=== PATIENT | female | born 1960 | race Caucasian/White ===

== ENCOUNTER 2024-02-06 06:11 | Day surgery (SDC) | payer OTHER ==
[~2024-02-06] VITALS: Ht 158 cm; Wt 57.6 kg
[2024-02-06] VITALS (16 sets, daily range): BP systolic 102–128; BP diastolic 61–77
[~2024-02-06 06:11] MED LIST: ALPR.25 PO; Adipex-P37.5 M1 PO; CIPRO500 MG PO; FISH1000 PO; Flagyl500 MG PO; HYDACE5 PO; OXYB5 PO; Percocet 10-321 EACH PO; Percocet 5-3251 EACH PO; Prozac20 MG PO; SERT100 PO; SERT50 PO; SUMA25 PO; TOPI25C PO; VITAMIN D310 MC4 PO
[2024-02-06] MEDS ORDERED: Ropivacaine 0.5% HCl/Pf 123.125 MG,EPINEPHrine HCL 0.25 MG,Ketorolac Tromethamine 15 MG... INFIL SCH (06:20)
[2024-02-06] MEDS ORDERED: Vancomycin HCL 1,000 MG in NS 250 ML IV SCH (06:20)
[2024-02-06] MEDS ORDERED: Acetaminophen 500 MG Tab PO SCH ×2 (06:20→08:00)
[2024-02-06] MEDS ORDERED: OxyCODONE HCL 10 MG TABCR PO SCH (06:20)
[2024-02-06] MEDS ORDERED: CeFAZolin Sodium 2,000 MG in NS 100 ML IV SCH ×2 (06:20→16:00)
[2024-02-06] MEDS ORDERED: Tranexamic Acid 100 ML IV SCH (06:20)
[2024-02-06] MEDS ORDERED: Chlorhexidine Mouth Care 15 ML UDC MT SCH (06:20)
[2024-02-06] MEDS ORDERED: Lactated Ringer's 1,000 ML IV SCH ×2 (06:20→07:40)
[2024-02-06] MEDS ORDERED: NYSTATIN100000 U13 PO (06:48)
[2024-02-06] MEDS ORDERED: propofoL 50 ML IV ONE (07:13)
[2024-02-06] MEDS ORDERED: Bupivacaine 0.75%/Dext 8.25% 2 ML Amp IT ONE (07:13)
[2024-02-06] MEDS ORDERED: Midazolam HCl 1MG / ML 2ML Vial ONE (07:16)
[2024-02-06] MEDS ORDERED: FentaNYL Citrate 50 MCG/ML 2 ML Injection ONE (07:16)
[2024-02-06] MEDS ORDERED: Dexamethasone Sod Phos 10 MG/ML 1ML VIAL ONE (07:19)
[2024-02-06] MEDS ORDERED: Ondansetron HCl 2 MG / ML 2ML Vial ONE (07:19)
[2024-02-06] MEDS ORDERED: Lidocaine HCl 2% 20 ML MDV ONE (07:19)
[2024-02-06] MEDS ORDERED: Vancomycin HCl 1000 MG ADDvantage ONE (07:26)
[2024-02-06] MEDS ORDERED: FLU VACC TS2024-25(6MOS UP)/PF 45 MCG/0.5 ML SYRINGE IM PRN (07:40)
[2024-02-06] MEDS ORDERED: HYDROmorphone HCl 2 MG Tab PO PRN (07:40)
[2024-02-06] MEDS ORDERED: Phenylephrine HCl 100 MCG/ML-NS 10MLSYR (1MG/10ML) ONE (07:41)
[2024-02-06] MEDS ORDERED: Metoclopramide HCl 5MG / ML 2ML Vial IV PRN (07:45)
[2024-02-06] MEDS ORDERED: Bisacodyl 10 MG Supp PR PRN (07:45)
[2024-02-06] MEDS ORDERED: Magnesium Hydroxide Conc 10 ML UDC PO PRN (07:45)
[2024-02-06] MEDS ORDERED: DiphenhydrAMINE HCL 25 MG Cap PO PRN (07:45)
[2024-02-06] MEDS ORDERED: OxyCODONE HCL 5 MG TAB PO PRN (07:50)
[2024-02-06] MEDS ORDERED: Naloxone HCl 0.4MG / ML 1ML Vial IV PRN (07:50)
[2024-02-06] MEDS ORDERED: SUMAtriptan succinate 50 MG Tab PO PRN (07:50)
[2024-02-06] MEDS ORDERED: Promethazine HCl 25 MG Tab PO PRN (07:50)
[2024-02-06] MEDS ORDERED: Ondansetron HCl 2 MG / ML 2ML Vial IV PRN (07:50)
[2024-02-06] MEDS ORDERED: Docusate Sodium 100 MG Cap PO SCH (09:00)
[2024-02-06] MEDS ORDERED: HYDROmorphone HCl/Pf 1MG SYR IV PRN (10:30)
--- NOTE | 2024-02-06 10:42 | NUR ---
PT ARRIVED TO THE ROOM VIA HOSPITAL BED. A&O X4 PLEASENT MOOD. ABLE TO WIGGLE TOES BUT STATES THAT SENSATION IS MIN. L KNEE INCISION COVERED WITH JULISA, C/D/I. PPP. VSS. SNACKS AND DRINKS AT BEDSIDE. BED IN LOWEST POSITION, CALL LIGHT WITHIN REACH.
[2024-02-06] MEDS ORDERED: ALPRAZolam 0.5 MG Tab PO PRN (11:20)
[2024-02-06] MEDS ORDERED: Nystatin 100,000 Unit/ML Susp 5 ML UDC PO PRN (11:25)
[2024-02-06] MEDS ORDERED: Ketorolac Tromethamine 15mg Vial IV SCH (12:00)
--- NOTE | 2024-02-06 17:25 | NUR ---
SHIFT SUMMARY POD 0 [facility]. INCISION DRESSINGS C/D/I. PPP. AMBULATED HALLWAYS AND WORKED WITH PT THIS AFTERNOON. PAIN MINIMAL AND MANAGED PER EMAR. EATING/DRINKING/VOIDING WITHOUT ISSUE. DENIES N/T. A&O X4. VSS.
[2024-02-06] MEDS ORDERED: Vancomycin HCL 1,000 MG in NS 250 ML IV ONE (19:00)
[2024-02-07 04:56] VITALS: BP 115/64
[2024-02-07 05:11] LABS: BASOPHILS ABSOLUTE AUTO 0.03 K/mm3 (0.00-0.23); BASOPHILS PERCENT AUTO 0 % (0-2); EOSINOPHILS ABSOLUTE AUTO 0.02 K/mm3 (0.00-0.68); EOSINOPHILS PERCENT AUTO 0 % (0-6); Hematocrit 33.6 % (33.0-51.0); Hemoglobin 11.3 g/dL (11.5-16.0); IMMATURE GRAN ABSOLUTE AUTO 0.03 K/mm3 (0.00-0.10); IMMATURE GRAN PERCENT AUTO 0 % (0-1); LYMPHOCYTES ABSOLUTE AUTO 2.99 K/mm3 (0.84-5.20); LYMPHOCYTES PERCENT AUTO 25 % (21-46); MONOCYTES ABSOLUTE AUTO 1.38 K/mm3 (0.16-1.47); MONOCYTES PERCENT AUTO 11 % (4-13); Mean Corpuscular HGB 31.4 pg (26.0-34.0); Mean Corpuscular HGB Conc 33.6 g/dL (31.5-36.5); Mean Corpuscular Volume 93 fL (80-100); Mean Platelet Volume 9.9 fL (9.1-12.4); NEUTROPHILS ABSOLUTE AUTO 7.75 K/mm3 (1.96-9.15); NEUTROPHILS PERCENT AUTO 64 % (41-73); Platelet Count 226 K/mm3 (150-400); RDW Coefficient Variation 12.2 % (11.7-14.2); RDW Standard Deviation 42.2 fL (35.1-46.3)
[2024-02-07 05:47] LABS: Bun/Creatinine Ratio 17.8 (12.0-20.0); Calcium, Blood 9.1 mg/dL (8.5-10.1); Creatinine, Blood 0.62 mg/dL (0.40-1.00); Magnesium, Blood 1.8 mg/dL (1.6-2.4); Potassium, Blood 3.7 mmol/L (3.5-5.5)
--- NOTE | 2024-02-07 05:47 | NUR ---
NOC SUMMARY- NO ISSUES NOTED. PT HAS BEEN COMFORTABLE THROUGHOUT SHIFT. PT AMBULATING W/ GB AND FWW. PT SLEPT SOME. PT AWAKE AND HAS NO COMPLAINTS. CALL LIGHT IN REACH.
[2024-02-07 07:18] VITALS: BP 111/71
[2024-02-07] MEDS ORDERED: ASPI81CH PO (07:21)
[2024-02-07] MEDS ORDERED: HYDMOR2 PO (07:22)
[2024-02-07] MEDS ORDERED: PROM25 PO (07:23)
[2024-02-07] MEDS ORDERED: SULTRIDS PO (07:24)
[2024-02-07] MEDS ORDERED: Aspirin 81 MG Chew PO SCH (09:00)
[2024-02-07] MEDS ORDERED: Topiramate 25 MG Tab PO SCH (09:00)
[2024-02-07] MEDS ORDERED: Cholecalciferol 400 unit Tab PO SCH (09:00)
[2024-02-07] MEDS ORDERED: FLUoxetine HCL 20 MG CAP PO SCH (09:00)
[2024-02-07] MEDS ORDERED: oxyBUTYnin chloride 5 MG TAB PO SCH (09:00)
[2024-02-07] MEDS ORDERED: Trimethoprim/Sulfamethoxazole DS Tab PO SCH (09:00)
--- NOTE | 2024-02-07 10:02 | NUR ---
DISCHARGE NOTE POD 1 [facility]. A&O X4, VSS, DRESSING CHANGED AT BEDSIDE THIS MORNING WITH PHYSICIAN. COVERED WITH AQUACEL C/D/I. EATING/DRINKING/VOIDING WITHOUT ISSUES. WORKED WITH OT THIS AM. IV REMOVED, TOLERATED WELL, CATHETER TIP INTACT. WHEELED OUT TO SONS CAR VIA WHEELCHAIR.
== END 2024-02-07 10:11 | disposition home or self-care (01) ==
LOC: ORSCMMR 06:11 → ORD 07:30 → SURS 10:20 → ORSCMMR 02-07 10:11
PROVIDERS: Orthopaedic Surgery
PROC: 0SRD0JA Replacement of Left Knee Joint with Synthetic Substitute, Uncemented, Open Approach (ICD-10-PCS; principal; 2024-02-06 07:30)
DX: M17.12 Unilateral primary osteoarthritis, left knee (principal); Z87.891 Personal history of nicotine dependence; Z79.899 Other long term (current) drug therapy
CPT/HCPCS: 36415; 73560-LT; 80048; 83735; 85025; 97110; 97116; 97162; 97530; A9270; C1713; C1776; J0171; J0690; J0735; J1100; J1885; J2250; J2371; J2405; J2704; J2795; J3010; J3370; J7050; J7120